=== PATIENT | male | born 1990 | race Caucasian/White ===

== ENCOUNTER 2021-08-24 01:50 | Inpatient (IN) ==
[~2021-08-24 01:50] MED LIST: Acetaminophen 325 MG TABLET PO PRN; Naloxone 0.4 MG/ML INJ IVP PRN; Ondansetron 4 MG/2 ML VIAL IVP PRN
[2021-08-24] MEDS ORDERED: Naloxone 0.4 MG/ML INJ IVP PRN (01:53)
[2021-08-24] MEDS ORDERED: Ondansetron ODT 4 MG TAB.RAPDIS SL PRN (01:53)
[2021-08-24] MEDS ORDERED: Melatonin 3 MG TABLET PO PRN (01:53)
[2021-08-24 02:51] LABS: Albumin 4.1 g/dL (3.5-5.7); Basophils % 0.2 %; Bilirubin,Direct 0.1 mg/dL (0.0-0.2); Bilirubin,Indirect 0.6 mg/dL (0.0-1.0); Bilirubin,Total 0.7 mg/dL (0.3-1.0); Eosinophils % 0.1 %; Globulin 2.1 g/dL (2.4-3.5); Magnesium 2.1 mg/dL (1.6-2.6); Phosphorous 4.1 mg/dL (2.7-4.5); Total Protein 6.2 g/dL (6.4-8.9)
[2021-08-24 02:53] LABS: Alanine Aminotransferase 14 Units/L (7-52); Albumin 3.9 g/dL (3.5-5.7); Albumin/Globulin Ratio 1.7 (1.1-2.2); Alkaline Phosphatase 39 Units/L (34-104); Aspartate Amino Transferase 13 Units/L (13-39); BUN/Creatinine Ratio 22 (6-26); Bilirubin,Total 0.7 mg/dL (0.3-1.0); Blood Urea Nitrogen 13 mg/dL (6-20); C-Reactive Protein 48 mg/L (Less than 10); Calcium 8.6 mg/dL (8.6-10.3); Carbon Dioxide 21 mEq/L (23-29); Chloride 105 mEq/L (98-107); Globulin 2.3 g/dL (2.4-3.5); Glucose 134 mg/dL (70-105); Hematocrit 23.2 % (37.5-50.1); Hemoglobin 6.2 g/dL (12.9-16.9); Immature Granulocytes % 0.5 % (0-4); Lymphocytes # 0.6 K/mcL (0.6-4.6); Lymphocytes % 4.6 %; Magnesium 2.1 mg/dL (1.6-2.6); Mean Corpuscular HGB Conc 26.7 g/dL (31.6-35.5); Mean Corpuscular Hemoglobin 16.9 pg (28.0-33.3); Mean Corpuscular Volume 63.2 fL (83.0-100.0); Mean Platelet Volume 9.1 fL (9.4-12.4); Monocytes # 0.3 K/mcL (0.0-1.3); Monocytes % 2.2 %; Neutrophils # 11.9 K/mcL (1.6-8.9); Osmolality,Calculated 282 (280-300); Platelet Count 428 K/mcL (140-400); Potassium 3.8 mEq/L (3.5-5.1); Red Blood Count 3.67 M/mcL (4.19-5.50); Red Cell Distribution Width 25.2 % (11.5-14.5); Segmented Neutrophils % 92.4 %; Sodium 135 mEq/L (136-145); Total Protein 6.2 g/dL (6.4-8.9); Troponin I < 0.03 ng/mL (< 0.04); White Blood Count 12.9 K/mcL (4.3-11.1); eGFR For African Americans > 60 (> 60); eGFR For Non-African Americans > 60 (> 60)
[2021-08-24 02:56] LABS: Procalcitonin 0.1 ng/mL (0.00-0.15)
[2021-08-24 02:59] LABS: INR 1.1; Prothrombin Time 11.8 Seconds (9.4-12.1)
[2021-08-24] MEDS ORDERED: Pantoprazole 40 MG in 0.9 % Sodium Chloride Mini Bag 100 ML IVC SCH (03:00)
[2021-08-24 03:02] LABS: Activated Partial Thrombo Time 24.7 Seconds (26.0-36.0)
[2021-08-24 03:04] LABS: Thyroid Stimulating Hormone 0.384 mcIU/mL (0.340-5.600)
[2021-08-24 04:37] LABS: Platelet Estimate Normal (Normal)
[2021-08-24] MEDS ORDERED: Ziprasidone 10 MG, Closed System Device IM Kit 1 EACH in Water for inj. (sterile) 0.5 ML IM ONE (04:37)
[2021-08-24 04:38] LABS: Anisocytosis 2+ (Not Present); Hypochromasia Present (Not Present); Microcytosis Present (Not Present)
[2021-08-24 05:25] LABS: Folate 21.4 ng/mL (3.0-16.0)
[2021-08-24 06:50] LABS: Hematocrit 23.9 % (37.5-50.1); Hemoglobin 6.5 g/dL (12.9-16.9)
[2021-08-24] MEDS ORDERED: *HR* Succinylcholine 200 MG/10 ML VIAL IVP ONE (15:00)
[2021-08-24] MEDS ORDERED: *HR* Midazolam HCl 2 MG/2 ML VIAL ONE (15:00)
[2021-08-24] MEDS ORDERED: *HR* Rocuronium Bromide 50 MG/5 ML VIAL ONE (15:00)
[2021-08-24] MEDS ORDERED: *HR* Midazolam HCl 5 MG/5 ML VIAL IVP ONE (15:13)
[2021-08-24] MEDS ORDERED: Dexmedetomidine HCl 400 MCG/100 ML MLS IVC ONE (15:54)
[2021-08-24] MEDS ORDERED: *HR* Ketamine 500 MG/5 ML MDV IVP ONE (16:00)
[2021-08-24] MEDS ORDERED: Ondansetron 4 MG/2 ML VIAL ONE (16:07)
[2021-08-24] MEDS ORDERED: flumazeniL 0.5 MG/5 ML VIAL IVP ONE (16:11)
[2021-08-24 16:51] VITALS: O2SAT 100
[2021-08-24 18:49] VITALS: BP 128/56; PULSE 75; TEMP 98
== END 2021-08-24 20:44 | disposition home or self-care (01) | DRG 663 ==
LOC: 2NENU → SUATTDRO 01:50
PROVIDERS: ADMIT Internal Medicine; ATTEND Internal Medicine
PROC: ENDOEBX (2021-08-24 15:00)